=== PATIENT | male | born 1970 | race African-American/Black ===

== ENCOUNTER 2016-06-17 10:07 | Observation (INO) | payer BC ==
[2016-06-17] VITALS (7 sets, daily range): BP systolic 115–140; BP diastolic 63–84; PULSE 64–78; RESP 12–20; TEMP 97.9–98.4; O2SAT 97–99
[~2016-06-17] VITALS: Ht 180.3 cm; Wt 105.0 kg
[~2016-06-17 10:07] MED LIST: NAPR500 PO; Z.0.NO CURRENT MEDS
[2016-06-17] MEDS ORDERED: PROP300T PO (10:30)
[2016-06-17] MEDS ORDERED: SODIUM CHLORIDE 0.9% FLUSH 5 ML FLUSH IVF PRN ×2 (10:30→12:15)
[2016-06-17] MEDS ORDERED: LISI10TA3 PO (10:30)
[2016-06-17] MEDS ORDERED: ASPI325T PO (10:30)
[2016-06-17 10:43] LABS: BASOPHIL % 0.8 % (0.0-2.0); EOSINOPHIL # 0.1 TH/MM3 (0-0.4); EOSINOPHIL % 1.3 % (0.0-4.0); HEMATOCRIT 44.2 % (39.0-51.0); HEMO FLAGS DIFF FINAL; LYMPH % 29.9 % (9.0-44.0); LYMPHOCYTE # 1.5 TH/MM3 (1.0-4.8); MEAN CELL VOLUME 86.6 FL (80.0-100.0); MEAN CORPUSCULAR HEMOGLOBIN 28.9 PG (27.0-34.0); MEAN CORPUSCULAR HGB CONC 33.3 % (32.0-36.0); MONO % 9.2 % (0.0-8.0); NEUT % 58.8 % (16.0-70.0); PLATELET COUNT 279 TH/MM3 (150-450); RED BLOOD COUNT 5.11 MIL/MM3 (4.50-5.90); RED CELL DISTRIBUTION WIDTH 13.8 % (11.6-17.2); WHITE BLOOD COUNT 5.1 TH/MM3 (4.0-11.0)
[2016-06-17 10:50] LABS: APTT (PATIENT) 29.2 SEC (24.3-30.1); PROTHROMBIN TIME - PATIENT 10.9 SEC (9.8-11.6)
[2016-06-17 10:54] LABS: ANION GAP 5 MEQ/L (5-15); BICARBONATE 29.3 MEQ/L (21.0-32.0); BLOOD UREA NITROGEN 17 MG/DL (7-18); CHLORIDE 104 MEQ/L (98-107); GLOMERULAR FILTRATION RATE 57 ML/MIN (>89); MAGNESIUM 2.1 MG/DL (1.5-2.5); POTASSIUM 4.1 MEQ/L (3.5-5.1); SODIUM (NA) 138 MEQ/L (136-145)
--- NOTE | 2016-06-17 10:58 | PD ---
HPI Chief Complaint: Chest Pain Time Seen by Provider: 10:26 Travel History International Travel<30 days: No Contact w/Intl Traveler<30days: No Traveled to known affect area: No History of Present Illness HPI 45-year-old male came to the emergency room with history of chest pain. Patient says that yesterday he was riding his motorcycle when he started getting chest pain followed by some shortness of breath. He was also dizzy but somehow went home and decided to rest. Eventually the discomfort subsided. This morning he rode his motorcycle again and went to work. The same pain and the discomfort returned. He is decided to come in to be checked out. His mother and grandparents on both sides. Patient denies smoking cigarettes or doing any street drugs. He does drink alcohol occasionally. Currently he is not in any chest discomfort. Patient took 325 mg of aspirin this morning. [facility] Past Medical History Narrative Medical List of his past medical history is reviewed from the nursing note. Hx Anticoagulant Therapy: Yes (ASPIRIN) Atrial Fibrillation: Yes Heart Rhythm Problems: No Cardiovascular Problems: Yes (A-FIB) High Cholesterol: No Congestive Heart Failure: No Diabetes: No GERD: Yes Hypertension: Yes Myocardial Infarction: No Influenza Vaccination: No Past Surgical History Coronary Artery Bypass Graft: No Family History Family Myocardial Infarction: Yes Social History Alcohol Use: Yes (OCCASIONALLY) Tobacco Use: No Substance Use: No Allergies-Medications (Allergen,Severity, Reaction): Coded Allergies: Bactrim (Verified Allergy, Intermediate, HIVES, 06/17/16) Comments List of his allergies reviewed from the nursing note. Reported Meds & Prescriptions Reported Meds & Active Scripts Active Reported Propafenone (Propafenone HCl) 300 Mg Tab 300 Mg PO BID Lisinopril 10 Mg Tab 10 Mg PO BID Aspirin 325 Mg Tab 325 Mg PO DAILY Narrative Medication List of his home medications reviewed from the nursing note. Review of Systems Except as stated in HPI: all other systems reviewed are Neg Physical Exam Narrative GENERAL: Awake, alert, no obvious distress, anxious SKIN: Warm and dry. HEAD: Atraumatic. Normocephalic. EYES: Pupils equal and round. No scleral icterus. No injection or drainage. ENT: No nasal bleeding or discharge. Mucous membranes pink and moist. NECK: Trachea midline. No JVD. CARDIOVASCULAR: Regular rate and rhythm. No murmur appreciated. RESPIRATORY: No accessory muscle use. Clear to auscultation. Breath sounds equal bilaterally. GASTROINTESTINAL: Abdomen soft, non-tender, nondistended. Hepatic and splenic margins not palpable. MUSCULOSKELETAL: No obvious deformities. No clubbing. No cyanosis. No edema. NEUROLOGICAL: Awake and alert. No obvious cranial nerve deficits. Motor grossly within normal limits. Normal speech. PSYCHIATRIC: Appropriate mood and affect; insight and judgment normal. Data Data Last Documented VS Vital Signs Date Time Temp Pulse Resp B/P Pulse Ox O2 Delivery O2 Flow Rate FiO2 06/17/16 10:17 98.4 78 16 125/84 97 06/17/16 10:13 Room Air Orders Electrocardiogram (06/17/16 ) Basic Metabolic Panel (Bmp) (06/17/16 10:26) Ckmb (Isoenzyme) Profile (06/17/16 10:26) Complete Blood Count With Diff (06/17/16 10:26) Magnesium (Mg) (06/17/16 10:26) Prothrombin Time / Inr (Pt) (06/17/16 10:26) Act Partial Throm Time (Ptt) (06/17/16 10:26) Troponin I (06/17/16 10:26) Chest, Single Ap (06/17/16 10:26) Ecg Monitoring (06/17/16 10:26) Bilateral Bp Monitoring (06/17/16 10:26) Iv Access Insert/Monitor (06/17/16 10:26) Oximetry (06/17/16 10:26) Oxygen Administration (06/17/16 10:26) Sodium Chloride 0.9% Flush (Ns Flush) (06/17/16 10:30) CKMB (06/17/16 10:30) CKMB% (06/17/16 10:30) Sodium Chlor 0.9% 1000 Ml Inj (Ns 1000 M (06/17/16 11:15) Drug Screen, Random Urine (06/17/16 11:11) Admit Order (Ed Use Only) (06/17/16 11:21) Labs Laboratory Tests Test 06/17/16 10:30 White Blood Count 5.1 TH/MM3 Red Blood Count 5.11 MIL/MM3 Hemoglobin 14.7 GM/DL Hematocrit 44.2 % Mean Corpuscular Volume 86.6 FL Mean Corpuscular Hemoglobin 28.9 PG Mean Corpuscular Hemoglobin 33.3 % Concent Red Cell Distribution Width 13.8 % Platelet Count 279 TH/MM3 Mean Platelet Volume 8.3 FL Neutrophils (%) (Auto) 58.8 % Lymphocytes (%) (Auto) 29.9 % Monocytes (%) (Auto) 9.2 % Eosinophils (%) (Auto) 1.3 % Basophils (%) (Auto) 0.8 % Neutrophils # (Auto) 3.0 TH/MM3 Lymphocytes # (Auto) 1.5 TH/MM3 Monocytes # (Auto) 0.5 TH/MM3 Eosinophils # (Auto) 0.1 TH/MM3 Basophils # (Auto) 0.0 TH/MM3 CBC Comment DIFF FINAL Differential Comment Prothrombin Time 10.9 SEC Prothromb Time International 1.0 RATIO Ratio Activated Partial 29.2 SEC Thromboplast Time Sodium Level 138 MEQ/L Potassium Level 4.1 MEQ/L Chloride Level 104 MEQ/L Carbon Dioxide Level 29.3 MEQ/L Anion Gap 5 MEQ/L Blood Urea Nitrogen 17 MG/DL Creatinine 1.61 MG/DL Estimat Glomerular Filtration 57 ML/MIN Rate Random Glucose 109 MG/DL Calcium Level 8.7 MG/DL Magnesium Level 2.1 MG/DL Total Creatine Kinase 552 U/L Creatine Kinase MB 2.2 NG/ML Creatine Kinase MB % 0.4 % Troponin I LESS THAN 0.02 NG/ML MDM Medical Decision Making Medical Screen Exam Complete: Yes Emergency Medical Condition: Yes Medical Record Reviewed: Yes Interpretation(s) Twelve-lead EKG was reviewed by me. Normal sinus rhythm, normal axis, first- degree AV block, nonspecific ST-T wave changes. Heart rate of 72 bpm. Differential Diagnosis ACS, non-STEMI, nonspecific chest pain Narrative Course 11:30 AM blood test results are back. They're within normal limit except for CPK which is slightly elevated. I've given a liter of IV fluid bolus. I will admit him to the chest pain center to rule out ACS given some risk factors. I discussed this with the patient and he is aware of it and comfortable with that plan. Procedures EKG Prior to Arrival: Yes Diagnosis Primary Impression: Chest pain Qualified Code: R07.9 - Chest pain, unspecified type Admitting Information Admitting Physician Requests: Observation Salvatore Martinez MD Jun 17, 2016 10:58
[2016-06-17 10:59] LABS: CREATINE KINASE 552 U/L (39-308)
[2016-06-17 11:11] LABS: CKMB 2.2 NG/ML (0.5-3.6)
[2016-06-17] MEDS ORDERED: SODIUM CHLOR 0.9% 1000 ML INJ 1,000 ML IV ONE (11:15)
--- NOTE | 2016-06-17 11:16 | RADRPT ---
EXAM DATE/TIME: 06/17/2016 10:30 [place] COMPARISON: None. INDICATIONS : Chest pain. MEDICAL HISTORY : atrial fibrillation SURGICAL HISTORY : None. ENCOUNTER: Initial ACUITY: 1 day PAIN SCORE: 4/10 LOCATION: Bilateral chest FINDINGS: A single view of the chest demonstrates the lungs to be symmetrically aerated without evidence of mas s, infiltrate or effusion. The cardiomediastinal contours are unremarkable. Widening of the right a. c. joint is nonspecific and may be posttraumatic. Osseous structures are otherwise intact. CONCLUSION: 1. Nonspecific widening of the right a.c. joint. This may be posttraumatic or stress-induced. 2. Otherwise, no acute cardiopulmonary process. Dwayne Wong MD Board Certified Radiologist. This report was verified electronically.
[2016-06-17 12:12] LABS: AMPHETAMINE, URINE NEG (NEG); BARBITURATES, URINE NEG (NEG); COCAINE, URINE NEG (NEG)
[2016-06-17] MEDS ORDERED: ACETAMINOPHEN 500 MG CPLT PO PRN (12:15)
[2016-06-17] MEDS ORDERED: ACETAMINOPHEN/HYDROcodone 325 MG/7.5 MG TAB PO PRN (12:15)
[2016-06-17] MEDS ORDERED: ALPRAZolam 0.25 MG TAB PO PRN (12:15)
[2016-06-17] MEDS ORDERED: ONDANSETRON HCL 4 MG/2 ML VIAL IV PRN (12:15)
--- NOTE | 2016-06-17 14:51 | MH ---
cc: ÁNGEL BROOKS DATE OF ADMISSION: 06/17/2016 DATE OF : 1970 CHIEF COMPLAINT Chest pain. HISTORY OF PRESENT ILLNESS This is a 45-year-old male with a history of paroxysmal atrial fibrillation, hypertension and sleep apnea who complains of chest discomfort. He states yesterday while he was driving he had a near syncopal episode. He states that everything seem to be getting a little black. He at the same time had a tightness in the left upper side of his chest that lasted about a minute. He also states that he felt like his heart was racing and it lasted a few minutes. He states that it felt similar to when he had episodes of atrial fibrillation in the past. He states he was short of breath, nauseous and diaphoretic with this. It essentially went away and he was able to continue his drive and it did not recur. He states he continued to feel fatigued throughout the day yesterday. This morning he was driving to work and a similar episode occurred. He described it also as a tightness that lasted seconds. He also felt like his vision was changing a little bit and was very fatigued. He did not have a sensation of his heart beating rapidly but felt it may have been a little irregular. He states it is somewhat similar to when he had atrial fibrillation in the past. He states his tractor technician warned him that he should use his CPAP for sleep apnea regularly as it may bring on atrial fibrillation more frequently. He states he has not been using his CPAP device. He currently denies chest discomfort. He states the last time he saw Dr. Monterroso was about a month ago. PAST MEDICAL HISTORY 1. Paroxysmal atrial fibrillation. 2. Hypertension. 3. Sleep apnea. Denies hyperlipidemia and diabetes. FAMILY HISTORY His mother has heart disease and had a stent placed in her 60s. SOCIAL HISTORY The patient is a lifetime nonsmoker, rarely has alcohol. Denies illicit drugs. He is a apparel manager. PAST SURGICAL HISTORY Noncontributory. ALLERGIES BACTRIM CAUSED HIVES. MEDICATIONS Current medications include: 1. Lisinopril 10 mg twice daily. 2. Propafenone 300 mg twice daily. 3. Aspirin 225 mg daily. REVIEW OF SYSTEMS GENERAL: Denies fevers or chills. Denies recent illnesses. HEENT: Denies headache, earache, sore throat, difficulty swallowing. CARDIOVASCULAR: Describes the discomfort as mentioned above. There was diaphoresis. He had sensation of heart beating irregularly. He felt near-syncopal. RESPIRATORY: He was short of breath. No inspirational chest discomfort. Denies coughing, wheezing or hemoptysis. GASTROINTESTINAL: He is nauseous. Denies emesis. Denies abdominal pain. Denies diarrhea, constipation or blood in the stool. MUSCULOSKELETAL: Denies joint pain or edema. Denies calf pain or edema. NEUROVASCULAR: Denies headache or dizziness. ENDOCRINE: Denies polyuria or polydipsia. HEMATOLOGIC: Denies easy bruising. SKIN: Denies rash or itching. PHYSICAL EXAMINATION VITAL SIGNS: The vital signs in the emergency department initially included a blood pressure of 120/84, heart rate 76, respirations 20, pulse oximetry 98% on room air, and he was afebrile. The most recent vital signs include a blood pressure of 115/64, heart rate 64, respirations 12, pulse oximetry 98% on room air. GENERAL: The patient is seen in the examination room in no apparent distress. He is very pleasant. He speaks in clear and complete sentences. HEENT: Atraumatic, normocephalic. NECK: Supple without lymphadenopathy. Trachea is midline. No JVD or carotid bruits. CARDIOVASCULAR: Regular rate and rhythm without murmur, gallop or rub. PULMONARY: Lungs are clear to auscultation bilaterally. No wheezing, rales or rhonchi. No reproducible chest wall discomfort. No use of accessory muscles. ABDOMEN: Nontender, nondistended. Bowel sounds are normal. No guarding or rebound. No obvious pulsatile mass or bruit. No CVA tenderness. Strong femoral pulses bilaterally. EXTREMITIES: The patient is moving upper and lower extremities freely. No joint tenderness or edema. No calf tenderness or edema. No Homans sign. Strong pulses in the upper and lower extremities. NEUROLOGIC: The patient is alert and oriented. Cranial nerves II through XII are grossly intact. No focal deficits. Speech is clear. SKIN: No rashes. Turgor is normal. LABORATORY DATA CBC is unremarkable. Coagulation studies are unremarkable. Basic metabolic panel has some mild renal insufficiency with a creatinine of 1.61, GFR decreased at 57, glucose mildly elevated at 109. The first set of cardiac enzymes have a normal troponin. CPK is elevated at 552. CK-MB is normal. CK-MB& is also normal. IMAGING DATA A single-view chest x-ray read by the radiologist as: 1. Nonspecific widening of the right AC joint; this may be post traumatic. 2. Otherwise no acute cardiopulmonary process. EKG DATA Initial EKG has sinus rhythm, rate 72, with first-degree A-V block. No significant ST segment depression or elevation. ASSESSMENT AND PLAN 1. Chest comfort: The patient is complaining of discomfort as mentioned above. He has a history of atrial fibrillation. He will have serial cardiac enzymes and EKGs for ruling out purposes. He will be seen by Dr. Brooks in the chest pain center. We also have a call in for the patient's tractor technician, Dr. Monterroso, to see what he would recommend. The patient will either be stress tested today if he rules out or he will be sent home at the request of his tractor technician with instructions to follow-up with him in the near future which will be on the chart. 2. Renal insufficiency: The patient was given IV hydration in the ER. He will need to follow-up with his physician. 3. Paroxysmal atrial fibrillation: The patient has a history of paroxysmal atrial fibrillation. He will need to follow-up with his tractor technician and continue his current medication. 4. Sleep apnea: The patient has been advised to use his CPAP device. 5. Hypertension: Continue current medication. 6. The patient is stable at this time. He is agreeable to this plan. Dictated by: Jr Beasley PA-C MD LOWELL Galvez/[place] /12:10 PM /2:50 PM
[2016-06-17 15:15] LABS: CREATINE KINASE 481 U/L (39-308)
--- NOTE | 2016-06-17 16:30 | HHI.DCPOC ---
Discharge Care Plan Diagnosis: (1) Chest pain, atypical (2) Paroxysmal a-fib (3) Sleep apnea Goals to Promote Your Health YOU NEED TO SEE YOUR CYTOLOGY TECHNOLOGIST TO TRY A DIFFERENT FITTING FOR YOUR C-PAP DEVICE. * To prevent worsening of your condition and complications * To maintain your health at the optimal level Directions to Meet Your Goals Take your medications as prescribed Follow your dietary instruction Follow activity as directed Keep your appointments as scheduled Take your immunizations and boosters as scheduled If your symptoms worsen call your PCP, if no PCP go to Urgent Care Center or Emergency Room Smoking is Dangerous to Your Health. Avoid second hand smoke Call the 24-hour hour crisis hotline for domestic abuse at Jr Beasley Jun 17, 2016 16:29
[2016-06-17 17:21] LABS: CREATINE KINASE 481 U/L (39-308)
--- NOTE | 2016-06-17 17:49 | EKG ---
Date Performed: 06/17/2016 Time Performed: 16:47:34 PTAGE: 45 years EKG: Sinus rhythm WITH FIRST DEGREE AV BLOCK ABNORMAL ECG PREVIOUS TRACING : 06/17/2016 13.46 DOCTOR: Anand Brooks Interpretating Date/Time 06/17/2016 17:47:32
--- NOTE | 2016-06-17 18:38 | EKG ---
Date Performed: 06/17/2016 Time Performed: 13:46:46 PTAGE: 45 years EKG: Sinus rhythm WITH FIRST DEGREE AV BLOCK ABNORMAL ECG PREVIOUS TRACING : 06/17/2016 10.21 DOCTOR: Anand Brooks Interpretating Date/Time 06/17/2016 18:37:08
--- NOTE | 2016-06-17 19:18 | EKG ---
Date Performed: 06/17/2016 Time Performed: 10:21:36 PTAGE: 45 years EKG: Sinus rhythm WITH FIRST DEGREE AV BLOCK MODERATE INTRAVENTRICULAR CONDUCTION DELAY ABNORMAL ECG NO PREVIOUS TRACING DOCTOR: Shashank Almonte Interpretating Date/Time 06/17/2016 19:16:02
[2016-06-17] MEDS ORDERED: PROPAFENONE HCL 150 MG TAB PO SCH (21:00)
[2016-06-17] MEDS ORDERED: SODIUM CHLORIDE 0.9% FLUSH 5 ML FLUSH IVF SCH (21:00)
[2016-06-17] MEDS ORDERED: LISINOPRIL 10 MG TAB PO SCH (21:00)
[2016-06-18] MEDS ORDERED: ASPIRIN 325 MG TAB PO SCH ×2 (09:00)
== END 2016-06-17 18:46 | disposition home or self-care (01) ==
LOC: NEPA 10:07 → NEDA 11:26 → NEPHCDU 12:58
PROVIDERS: ADMIT Family Medicine; ATTEND Family Medicine
DX: R07.89 Other chest pain (principal); I48.0 Paroxysmal atrial fibrillation; I10 Essential (primary) hypertension; G47.30 Sleep apnea, unspecified; K21.9 Gastro-esophageal reflux disease without esophagitis; R94.31 Abnormal electrocardiogram [ECG] [EKG]; N28.9 Disorder of kidney and ureter, unspecified
CPT/HCPCS: 71010; 80048; 80307; 82550; 82552; 83735; 84484; 85025; 85610; 85730; 93005; 99285; G0378; J7030